=== PATIENT | female | born 1995 | race Caucasian/White ===

== ENCOUNTER 2016-06-26 15:11 | Emergency (ER) | payer OTHER ==
[2016-06-26 15:27] VITALS: BP 143/80; PULSE 94; RESP 16; TEMP 98.6; O2SAT 97
--- NOTE | 2016-06-26 15:59 | UCPHY ---
H & P Patient Type: Established HPI/ROS: CHIEF COMPLAINT: Atraumatic left foot pain. HISTORY OF PRESENT ILLNESS: The patient is a 21-year-old female who presents with 10 days of atraumatic left foot pain. The pain is in the arch of her foot, at tthe base of the / MT. It does not radiate. She denies trauma or puncture wounds. She is still able to walk but with a small limp, causing her knee discomfort. She has no history of similar symptoms and no history of right foot problems. Sister does have a history of plantar fasciitis She walks [address] day REVIEW OF SYSTEMS: Constitutional - no fevers or chills Musculoskeletal - no joint or muscle pain. Integument - no rashes or wounds Neurological - no numbness, tingling, or paresthesias. Past Medical/Surgical History: Denies. Social History: [employer] Student, nonsmoker. Smoking Status: Never smoked Physical Exam: General Appearance: Alert, no distress. Afebrile. Normal phonation. No respiratory distress. Neurological: Ox3. No motor weakness. Sensation intact. Antalgic gait Skin: Warm and dry, no rashes. Musculoskeletal: No joint swelling. Extremities: No edema, No lymphangitis. She is tender overlying the sesamoid bones of the base of the foot however there are no matt or discolorations or sites of wound or plantar warts present. There is no soft tissue swelling or edema or erythema or fluctuance or induration. Psychiatric: Normal affect Constitutional: Initial Vital Signs Temperature (C) 37 C 06/26/16 15:22 Heart Rate 94 06/26/16 15:22 Respiratory Rate 16 06/26/16 15:22 Blood Pressure 143/80 H 06/26/16 15:22 O2 Sat (%) 97 06/26/16 15:22 O2 Delivery Mode Room Air Allergies/Adverse Reactions: No Known Allergies Allergy (Verified 02/11/16 09:42) Home Medications: Medication Instructions Recorded Ortho Tri-Cyclen Lo Tablet 07/04/15 Albuterol Hfa Anes Only [Proair 2 puffs IH Q4 PRN #1 mdi 02/11/16 Hfa Icu (*)] Guaifenesin/Codeine Phosphate 5 - 10 ml PO Q6 PRN #120 ml 02/11/16 [Guaifenesin-Codeine Liquid] Medical Decision Making - Diagnostics Imaging: Study: Left foot x-ray Indication: Pain Results: I viewed the images myself on the PACS system. The radiologist interpretation is normal radiograph of the foot. ED Course/Re-evaluation: Left foot x-ray ordered. Differential Diagnosis: The differential diagnosis includes but is not limited to: Fracture, Sprain, Strain, Dislocation, Nerve injury, plantar work, cellulitis, overuse syndrome Departure - Departure Disposition: Home, Routine, Self-Care Clinical Impression: Left foot pain Condition: Good Instructions: Foot Sprain (ED) Additional Instructions: Call Dr. Marina, podiatry, on Wednesday to set up a follow up appointment. Take 600mg Ibuprofen 3 times daily for the next 7 days. Use a cane or a crutch so as to take as much weight as possible off the painful foot. Massage the area three times a day, apply ice. Return for any worsening of condition. Referrals: Richard Marina DPM [Doctor of Podiatric Medicine] - As per Instructions - PQRS PQRS Measurement: Not applicable Report Scribed for: Golden Zuleta Report Scribed by: Iftikhar Rosenbaum Date of Report: 06/26/16 Time of Report: 15:45 Physician Review and Approval Statement: 06/26/16 15:45 Portions of this note were transcribed by a lead medical technologist. I personally performed a history, physical exam, medical decision making, and confirmed accuracy of information the transcribed note.
== END 2016-06-26 17:30 | disposition home or self-care (01) ==
LOC: CED 15:11
DX: S93.602A Unspecified sprain of left foot, initial encounter (principal)
CPT/HCPCS: 73630-PO; G0463-PO